=== PATIENT | female | born 1985 | race African-American/Black ===

== ENCOUNTER 2016-08-15 20:48 | Emergency (ER) ==
--- NOTE | 2016-08-15 22:06 | PROVIDER DOCUMENTATION ---
HPI-Respiratory General - General Source: patient - History of Present Illness-Resp Quality of Pain: reports: aching Severity in ED: reports: mild Onset/Duration: reports: 1 week ago Timing: reports: still present Cough Quality/Degree: reports: mild Current Respiratory Medication Therapy: Initiated see nurses note Associated Symptoms: reports: chest pain/soreness, cough Similar Symptoms Previously?: No Recently seen or treated by another doctor?: No <Breana Carrizales - Last Filed: 08/15/16 23:11> <Alejandro Orellana - Last Filed: 08/16/16 00:06> - General Chief Complaint: Cough Stated Complaint: COUGH/WEAKNESS Time Seen by Provider: 08/15/16 21:28 Allergies/Adverse Reactions: Patient Allergies Allergy/AdvReac Type Severity Reaction Status Date / Time No Known Allergies Allergy Verified 08/15/16 20:55 Home Medications: Home Medication List Medication Instructions Recorded Confirmed Last Taken Type Azithromycin [Zithromax Z-Rosalio] 250 mg PO DIRECTED #1 pkg 08/16/16 Unknown Rx Methylprednisolone [Medrol Dosepak] 4 mg PO DIRECTED #1 package 08/16/16 Unknown Rx - History of Present Illness-Resp Nature of Presenting Problem: 31 year old F presents to the ED with a cc of a cough and fatigue with an onset of 1 week. PT states that she has chest pain with coughing and breathing. PT states that today she vomited x1 after a coughing episode. Pt states that she has been exposed to the flu while at work last week. (Breana Carrizales) Review of Systems - Adult - REVIEW OF SYSTEMS - ADULT Constitutional: reports: fatique. denies: chills, fever Eyes: reports: no symptoms reported Ears, Nose, Mouth & Throat: reports: no symptoms reported Cardiovascular: reports: chest pain. denies: palpitations Respiratory: reports: cough. denies: shortness of breath Gastrointestinal: reports: no symptoms reported Genitourinary: reports: no symptoms reported Musculoskeletal: reports: no symptoms reported Integumentary: reports: no symptoms reported Neurological: reports: no symptoms reported Psychiatric: reports: no symptoms reported Endocrine: reports: no symptoms reported Hematologic/Lymphatic: reports: no symptoms reported Allergic/Immunologic: reports: no symptoms reported All Other Systems: Reviewed and Negative <Breana Carrizales - Last Filed: 08/15/16 23:11> Past History - Adult - PAST MEDICAL HISTORY-ADULT Review of Records: reports: Nursing Assessment Review, Medications Reviewed Major Childhood Illnesses: reports: denies history Cardiovascular: reports: denies history Respiratory: reports: denies history Gastrointestinal: reports: denies history Genitourinary: reports: denies history Musculoskeletal: reports: denies history Neurological: reports: denies history Endocrine/Immune: reports: denies history Other Conditions: reports: denies history - PRIOR SURGERIES/PROCEDURES Surgical/Procedure History: reports: cholecystectomy - IMMUNIZATION STATUS Childhood Immunizations: See Nurse Assessment Flu Vaccine: See Nurse Assessment - FAMILY HISTORY Family History: reviewed, not pertinent - SOCIAL HISTORY Smoking: cigarettes, less than 1 pack/day Provider spent 3-5 mins advising pt. on dangers of tobacco.: Discussed manners to quit use, and f/u contacts for add'l counseling. Substance Use: none/never Alcohol Use Frequency: occasionally <Breana Carrizales - Last Filed: 08/15/16 23:11> Physical Exam-General - PHYSICAL EXAM-ADULT Initial Vital Signs Reviewed: Yes - CONSTITUTIONAL General Appearance: appears well, alert, no apparent distress - RESPIRATORY Respiratory: chest non-tender, lungs clear, normal breath sounds - CARDIOVASCULAR Cardiovascular: normal peripheral pulses, regular rate, rhythm, no edema - GASTROINTESTINAL (ABDOMEN) Abdominal Exam: normal bowel sounds, non tender, soft - MUSCULOSKELETAL Extremity: normal inspection - SKIN Integumentary: normal color, normal turgor, warm/dry - PSYCHIATRIC Psych/Mental Status: normal mood/affect, normal thought content, normal thought process, oriented x 3 <Breana Carrizales - Last Filed: 08/15/16 23:11> Progress <Breana Carrizales - Last Filed: 08/15/16 23:11> - XRAY 1 XRAY Study: Chest Impression: Normal XRAY Interpretation: nad <Alejandro Orellana - Last Filed: 08/16/16 00:06> - PLAN OF CARE/RESULTS Progress/Plan/Lab Results: Orders Category Date Time Status CHEST-2 VIEWS [RAD] Stat Exams 08/15/16 21:29 Taken Flu [INFLUENZA SCREEN PL] Stat Lab 08/15/16 22:28 Completed Dexamethasone [Decadron] Med 08/15/16 22:22 Discontinued 10 mg .ROUTE .STK-MED ONE Dexamethasone [Decadron] Med 08/15/16 22:16 Discontinued 10 mg IM NOW ONE Laboratory Tests 08/15/16 22:28 Influenza A (Rapid) NEGATIVE Influenza B (Rapid) NEGATIVE Vital Signs - 24 hr 08/15/16 20:52 Temperature 97.1 F L Pulse Rate 91 H Respiratory 16 Rate Blood Pressure 155/098 O2 Sat by Pulse 99 Oximetry (Alejandro Orellana) Departure <Breana Carrizales - Last Filed: 08/15/16 23:11> - Departure Time of Disposition Order: 00:04 Certified Medical Emergency: Emergent <Alejandro Orellana - Last Filed: 08/16/16 00:06> - Departure DIAGNOSIS: URI (upper respiratory infection) Qualifiers: URI type: unspecified URI Qualified Code(s): J06.9 - Acute upper respiratory infection, unspecified Disposition: HOME 01 Condition: Stable Additional Instructions: ED Follow Up Instructions: You have been treated by a care provider in the Emergency Department. These instructions are being provided to you so you can have an understanding of how to care for yourself upon discharge. Upon discharge from the Emergency Department, you are responsible for making arrangements for follow-up care by a physician of your choice. Take all prescribed medications as directed. Return to the Emergency Department immediately for any new or worsening symptoms. You may call the Physician Referral phone number at [phone] to obtain a list of Physicians who are taking new patients. Prescriptions: Methylprednisolone [Medrol Dosepak] 4 mg PO DIRECTED #1 package Azithromycin [Zithromax Z-Rosalio] 250 mg PO DIRECTED #1 pkg Referrals: None,PCP [Primary Care Provider] - Attestation - Scribe Verification/Attestation Scribe:: Breana Carrizales Acting as Scribe for:: Alejandro Orellana Scribe documention review:: This chart was documented by a scribe and accurately reflects the service the provider performed and the decisions made by the provider. <Breana Carrizales - Last Filed: 08/15/16 23:11> - Physician/ ALLEN Attestation Patient care was provided by Advanced Practice Provider:: Yes Advanced Practice Provider:: Alejandro Orellana Advanced Practice Provider documentation review:: The Mid-level provider documentation, treatment plan and medical decision making was reviewed by the physician who agrees with all treatment and medical decision making by the MLP. <Alejandro Orellana - Last Filed: 08/16/16 00:06> Physician Attestation - Physician Attestation I, the provider, attest to the following statement:: Alejandro Orellana Physician documentation Attestation:: This documentation recorded by the scribe accurately reflects the service I personally performed and the decisions made by me. <Alejandro Orellana - Last Filed: 08/16/16 00:06>
[2016-08-15] MEDS ORDERED: DECADRON IM ONE (22:16)
[2016-08-15] MEDS ORDERED: DECADRON ONE (22:22)
[2016-08-16 00:16] VITALS: BP 132/88
--- NOTE | 2016-08-16 07:58 | Diag Imaging Result Document ---
PROCEDURE NAME: CHEST-2 VIEWS - 08/15/2016 FRONTAL AND LATERAL CHEST, TWO VIEWS: FINDINGS: The lungs are well expanded. The heart is not enlarged. The vessels are not distended. There are no infiltrates. No pleural effusions. No consolidation. IMPRESSION: No pneumonia.
== END 2016-08-16 00:33 | disposition home or self-care (01) ==
LOC: P.ED 20:48
DX: J06.9 Acute upper respiratory infection, unspecified (principal); R05 Cough; R53.83 Other fatigue; R07.9 Chest pain, unspecified; F17.210 Nicotine dependence, cigarettes, uncomplicated; Z71.6 Tobacco abuse counseling
CPT/HCPCS: 71020; 87804; 96372